=== PATIENT | female | born 2000 | race Caucasian/White ===

== ENCOUNTER 2018-03-13 23:50 | Emergency (ER) | payer OTHER ==
--- NOTE | 2018-03-13 23:53 | EDPHY ---
H & P Time Seen by Provider: 03/13/18 23:52 HPI/ROS: HPI CHIEF COMPLAINT: Right Lateral Rib Pain. HISTORY OF PRESENT ILLNESS: 17-year-old female presents emergency room right lateral rib pain. Patient states she has had some right lateral lower rib pain for the past week. Was tolerable however she sneeze tonight the pain became very severe. The pain is located right lateral lower rib. She states she may have injured her ribs a week ago when she turned abnormally in bed. She denies hemoptysis, denies pleuritic pain, denies chest pain or shortness of breath, denies fever. Denies productive cough. Pain is located right lateral lower rib. Worse when she moves and when you press over his ribs additionally worse when she sneezed this evening. Past Medical History: Migraine headaches. Past Surgical History: Denies recent surgery Social History: Denies drugs alcohol tobacco. Family History: Noncontributory ROS REVIEW OF SYSTEMS: 10 Systems were reviewed and negative with the exception of the elements mentioned in the history of present illness. Exam Constitutional appears well nontoxic no acute distress triage nursing summary reviewed, vital signs reviewed, awake/alert. Eyes normal conjunctivae and sclera, EOMI, PERRLA. HENT normal inspection, atraumatic, moist mucus membranes, no epistaxis, neck supple/ no meningismus, no raccoon eyes. Respiratory clear to auscultation bilaterally, normal breath sounds, no respiratory distress, no wheezing. Cardiovascular chest wall: Mild tender palpation over the right lateral chest wall. Reproducible on exam. No crepitus. No rash. rate normal, regular rhythm, no murmur, no edema, distal pulses normal. Gastrointestinal soft, non-tender, no rebound, no guarding, normal bowel sounds, no distension, no pulsatile mass. Genitourinary no CVA tenderness. Musculoskeletal no midline vertebral tenderness, full range of motion, no calf swelling, no tenderness of extremities, no meningismus, good pulses, neurovascularly intact. Skin pink, warm, & dry, no rash, skin atraumatic. Neurologic awake, alert and oriented x 3, AAOx3, moves all 4 extremities equally, motor intact, sensory intact, CN II-XII intact, normal cerebellar, normal vision, normal speech. Psychiatric normal mood/affect. Heme/Lymph/Immune no lymphadenopathy. Differential Diagnosis: Includes but is not limited to in a particular order pleurisy, pneumonia, rib contusion, rib sprain, rib fractures, pneumothorax Medical Decision Making: Plan for this patient two view chest x-ray, ibuprofen 800 mg and re-evaluate. Re-evaluation: Chest x-ray two view reviewed. Negative for acute focal infiltrate or pneumonia or pneumothorax. Nothing to explain right lateral lower rib pain. On re-examination she does have reproducible right lateral rib pain on exam. It did improve with ibuprofen 800 mg. She is on control. She does have pain when she takes deep breath in however only with deep deep inspiration. Plan will be check D-dimer. If D-dimer is negative I feel comfortable allowing to go home with musculoskeletal rib pain. D-dimer noted be negative. Patient's abdomen is soft nontender. Recommend anti-inflammatory pain medicine Return precautions discussed with the patient. Source: Patient Constitutional: Initial Vital Signs Temperature (C) 37.0 C 03/13/18 23:53 Heart Rate 76 03/13/18 23:53 Respiratory Rate 16 03/13/18 23:53 Blood Pressure 135/80 H 03/13/18 23:53 O2 Sat (%) 96 03/13/18 23:53 O2 Delivery Mode Room Air Allergies/Adverse Reactions: No Known Allergies Allergy (Unverified 03/13/18 23:55) Home Medications: Medication Instructions Recorded Lexapro 03/13/18 Topiramate 03/13/18 Ibuprofen [Motrin (*)] 800 mg PO Q6-8PRN #10 tab 03/14/18 Medical Decision Making - Data Points Laboratory Results: 03/14/18 03/14/18 00:49 00:10 D-Dimer < 0.27 ug/mLFEU ug/mLFEU (0.00-0.50) Urine Color YELLOW Urine Appearance HAZY Urine pH 5.0 (5.0-7.5) Ur Specific [place] 1.026 (1.002-1.030) Urine Protein NEGATIVE (NEGATIVE) Urine Ketones NEGATIVE (NEGATIVE) Urine Blood 2+ H (NEGATIVE) Urine Nitrate NEGATIVE (NEGATIVE) Urine Bilirubin NEGATIVE (NEGATIVE) Urine Urobilinogen 2.0 EU H EU (0.2-1.0) Ur Leukocyte Esterase NEGATIVE (NEGATIVE) Urine RBC 3-5 /hpf H /hpf (0-3) Urine WBC 3-5 /hpf H /hpf (0-3) Ur Epithelial Cells TRACE /lpf /lpf (NONE-1+) Urine Mucus 1+ /lpf /lpf (NONE-1+) Urine Glucose NEGATIVE (NEGATIVE) Medications Given: Discontinued Medications Ibuprofen (Motrin) 800 mg PO EDNOW ONE Stop: 03/14/18 00:12 Last Admin: 03/14/18 00:15 Dose: 800 mg Departure - Departure Disposition: Home, Routine, Self-Care Clinical Impression: Rib pain on right side Condition: Good Instructions: Rib Contusion (ED) Additional Instructions: 1. Recommend anti-inflammatory pain medicine 2. Ice. 3. Return if worse. Referrals: Patient,NotPresent [Unknown] - As per Instructions Prescriptions: Ibuprofen [Motrin (*)] 800 mg PO Q6-8PRN #10 tab
[2018-03-13 23:56] VITALS: BP 135/80
[2018-03-14] MEDS ORDERED: IBUPROFEN 800 MG TAB PO ONE (00:11)
== END 2018-03-14 01:25 | disposition home or self-care (01) ==
DX: R07.81 Pleurodynia (principal)